=== PATIENT | female | born 1935 ===

== ENCOUNTER 2022-12-22 09:15 | Inpatient (IN) | payer OTHER ==
[~2022-12-22] VITALS: Ht 147.3 cm; Wt 35.4 kg
[2022-12-22] MEDS ORDERED: ATORVASTATIN CA10 MG PO (14:55)
[2022-12-22] MEDS ORDERED: TIROSINT75 MCG PO (14:55)
[2022-12-22] MEDS ORDERED: COZAAR100 MG PO (14:56)
[2022-12-22] MEDS ORDERED: RESTORIL30 M1 PO (14:56)
== END 2022-12-29 15:48 | disposition home or self-care (01) | DRG 334 ==
LOC: O/R 12-28 05:47 → SURG 12-28 07:00 → SURH 12-28 15:49
PROVIDERS: ADMIT Colon & Rectal Surgery; ATTEND Colon & Rectal Surgery
PROC: 0DJD8ZZ Inspection of Lower Intestinal Tract, Via Natural or Artificial Opening Endoscopic (ICD-10-PCS; 2022-12-28)
PROC: 0DBP4ZZ Excision of Rectum, Percutaneous Endoscopic Approach (ICD-10-PCS; principal; 2022-12-28 07:00)
DX: D12.8 Benign neoplasm of rectum (principal); Z20.822 Contact with and (suspected) exposure to COVID-19
CPT/HCPCS: 0184T; 45123; 45300

== ENCOUNTER 2023-01-02 14:28 | Inpatient (IN) | payer OTHER ==
[~2023-01-02] VITALS: Ht 142.2 cm; Wt 35.4 kg
[~2023-01-02 14:28] MED LIST: ATORVASTATIN CA10 MG PO; COZAAR100 MG PO; RESTORIL30 M1 PO; TIROSINT75 MCG PO
== END 2023-01-06 14:37 | disposition home or self-care (01) | DRG 395 ==
LOC: ER 14:28 → SURG 21:47
PROVIDERS: ADMIT Colon & Rectal Surgery; ATTEND Colon & Rectal Surgery
PROC: BW21YZZ Computerized Tomography (CT Scan) of Abdomen and Pelvis using Other Contrast (ICD-10-PCS; principal; 2023-01-02)
DX: K63.1 Perforation of intestine (nontraumatic) (principal); Z90.49 Acquired absence of other specified parts of digestive tract